=== PATIENT | male | born 1935 | race Caucasian/White ===

== ENCOUNTER 2018-02-23 13:55 | Outpatient (CLI) | payer MEDICARE, OTHER ==
[~2018-02-23 13:55] MED LIST: Iopamidol 370 76% 100 ML VIAL ONE
[2018-02-23 14:36] LABS: Estimated GFR-MDRD - POC Greater than 90
== END 2018-02-23 13:56 | disposition home or self-care (01) ==
LOC: BICCT 13:55
PROVIDERS: ATTEND Internal Medicine
DX: R19.7 Diarrhea, unspecified (principal); R63.4 Abnormal weight loss; K57.30 Diverticulosis of large intestine without perforation or abscess without bleeding; K86.89 Other specified diseases of pancreas
CPT/HCPCS: 74177; 82565